=== PATIENT | female | born 1965 | race Caucasian/White ===

== ENCOUNTER 2020-06-08 12:05 | Emergency (ER) | payer OTHER ==
[~2020-06-08] VITALS: Ht 157.5 cm; Wt 63.5 kg
[2020-06-08 13:29] VITALS: Ht 157.5 cm; Wt 63.5 kg
[2020-06-08 17:29] VITALS: BP 133/65
== END 2020-06-08 15:47 | disposition home or self-care (01) ==
LOC: ED 12:05
DX: S61.213A Laceration without foreign body of left middle finger without damage to nail, initial encounter (principal); W45.8XXA Other foreign body or object entering through skin, initial encounter; Y93.89 Activity, other specified; Y92.89 Other specified places as the place of occurrence of the external cause; Y99.0 Civilian activity done for income or pay
CPT/HCPCS: 90715